=== PATIENT | female | born 1945 | race Caucasian/White ===

== ENCOUNTER → 2016-08-30 | Outpatient (CLI) | payer MEDICARE, BC ==
[~2016-08-30] MED LIST: CALCIUM 600600 M2 PO; CELEBREX 200MG200 MG PO; CLARITIN 1010 MG/TAB PO; FLOVENT DI250 MCG/Ac IH; FOLIC ACID 40400 MCG PO; NORCO 325 MG-7.1 TAB PO; PRIL40 PO; ULTRAM 50MG TAB50 MG PO; VERAMYST27.5 MCG/A NS; VITAMIN C500 MG PO
== END ==
LOC: ZCOL.LAB 14:18
DX: Z01.89 Encounter for other specified special examinations (principal)

== ENCOUNTER → 2016-10-04 | Outpatient (REF) ==
[2016-10-04 11:11] LABS: THYROID STIMULATING HORMONE < 0.015 uIU/mL (0.465-4.680)
== END ==
LOC: ZLAB.WCH 10:22
PROVIDERS: Internal Medicine
DX: Z01.89 Encounter for other specified special examinations (principal)

== ENCOUNTER → 2016-10-20 | Outpatient (REF) ==
[2016-10-20 19:07] LABS: THYROID STIMULATING HORMONE < 0.015 uIU/mL (0.465-4.680)
== END ==
LOC: ZLAB.WCH 18:08
PROVIDERS: Internal Medicine
DX: Z01.89 Encounter for other specified special examinations (principal)

== ENCOUNTER → 2016-11-01 | Outpatient (CLI) | payer MEDICARE, BC | LOC: COL.RAD 07:31 | DX: E04.1 Nontoxic single thyroid nodule (principal) | CPT/HCPCS: A9516 ==

== ENCOUNTER → 2017-05-03 | Outpatient (REF) ==
[2017-05-03 09:35] LABS: THYROID STIMULATING HORMONE 0.994 uIU/mL (0.465-4.680)
== END ==
LOC: ZLAB.WCH 08:34
PROVIDERS: Internal Medicine
DX: Z01.89 Encounter for other specified special examinations (principal)

== ENCOUNTER → 2017-05-26 | Outpatient (CLI) | payer MEDICARE, BC | LOC: COL.RAD 13:00 | DX: E05.20 Thyrotoxicosis with toxic multinodular goiter without thyrotoxic crisis or storm (principal) | CPT/HCPCS: A9517 ==

== ENCOUNTER → 2017-06-30 | Outpatient (REF) ==
[2017-06-30 17:00] LABS: THYROID STIMULATING HORMONE < 0.015 uIU/mL (0.465-4.680)
== END ==
LOC: ZLAB.WCH 16:09
PROVIDERS: Internal Medicine
DX: Z01.89 Encounter for other specified special examinations (principal)

== ENCOUNTER → 2017-08-01 | Outpatient (REF) ==
[2017-08-01 16:01] LABS: THYROID STIMULATING HORMONE 1.53 uIU/mL (0.465-4.680)
== END ==
LOC: ZLAB.WCH 14:26
PROVIDERS: Internal Medicine
DX: Z01.89 Encounter for other specified special examinations (principal)

== ENCOUNTER → 2017-08-30 | Outpatient (REF) ==
[2017-08-30 16:31] LABS: THYROID STIMULATING HORMONE 1.77 uIU/mL (0.465-4.680)
== END ==
LOC: ZLAB.WCH 15:37
PROVIDERS: Internal Medicine
DX: Z01.89 Encounter for other specified special examinations (principal)

== ENCOUNTER → 2017-10-05 | Outpatient (REF) ==
[2017-10-05 18:28] LABS: THYROID STIMULATING HORMONE < 0.015 uIU/mL (0.465-4.680)
== END ==
LOC: ZLAB.WCH 17:46
PROVIDERS: Internal Medicine
DX: Z01.89 Encounter for other specified special examinations (principal)

== ENCOUNTER → 2017-11-03 | Outpatient (REF) ==
[2017-11-03 19:00] LABS: THYROID STIMULATING HORMONE < 0.015 uIU/mL (0.465-4.680)
== END ==
LOC: ZLAB.WCH 18:09
PROVIDERS: Internal Medicine
DX: Z01.89 Encounter for other specified special examinations (principal)

== ENCOUNTER → 2017-12-25 | Outpatient (REF) ==
[2017-12-25 17:11] LABS: THYROID STIMULATING HORMONE < 0.015 uIU/mL (0.465-4.680)
== END ==
LOC: ZLAB.WCH 16:02
PROVIDERS: Internal Medicine Endocrinology, Diabetes & Metabolism
DX: Z01.89 Encounter for other specified special examinations (principal)

== ENCOUNTER → 2018-01-24 | Outpatient (REF) ==
[2018-01-24 16:46] LABS: THYROID STIMULATING HORMONE 0.1 uIU/mL (0.465-4.680)
== END ==
LOC: ZLAB.WCH 16:03
PROVIDERS: Internal Medicine Endocrinology, Diabetes & Metabolism
DX: Z01.89 Encounter for other specified special examinations (principal)

== ENCOUNTER 2021-03-24 13:01 | Outpatient (CLI) | payer MEDICARE, BC ==
[2021-03-24] VITALS (7 sets, daily range): BP systolic 101–142; BP diastolic 52–68; PULSE 80–89; TEMP 97.7
[2021-03-24] MEDS ORDERED: MOBIC15 MG PO (14:11)
[2021-03-24] MEDS ORDERED: FOSAMAX 70MG TA70 MG PO (14:11)
[2021-03-24] MEDS ORDERED: SINGULAIR 110 MG/TAB PO (14:11)
[2021-03-24] MEDS ORDERED: SYSTANE 0.4%-0.1 SOL OP (14:12)
[2021-03-24] MEDS ORDERED: CALCIUM 600 MG1 EAC2 PO (14:12)
== END 2021-03-24 14:55 | disposition home or self-care (01) ==
LOC: EUO 13:01
DX: U07.1 COVID-19 (principal); J98.4 Other disorders of lung
CPT/HCPCS: M0245

== ENCOUNTER 2021-09-08 10:54 | Outpatient (RCR) | payer MEDICARE, BC ==
[~2021-09-08 10:54] MED LIST changes: +CALCIUM 600 MG1 EAC2 PO; +FOSAMAX 70MG TA70 MG PO; +MOBIC15 MG PO; +SINGULAIR 110 MG/TAB PO; +SYSTANE 0.4%-0.1 SOL OP
== END 2021-10-07 | disposition home or self-care (01) ==
LOC: MKS.ESL.PT
DX: M17.12 Unilateral primary osteoarthritis, left knee (principal)

== ENCOUNTER → 2021-10-07 | Outpatient (RCR) | payer MEDICARE, BC | END | disposition still patient (30) | LOC: MKS.ESL.PT | DX: M17.12 Unilateral primary osteoarthritis, left knee (principal) ==

== ENCOUNTER 2021-11-03 10:30 | Outpatient (RCR) | payer MEDICARE, BC | END 2021-11-07 | disposition home or self-care (01) | LOC: MKS.ESL.PT | DX: M17.12 Unilateral primary osteoarthritis, left knee (principal); Z96.652 Presence of left artificial knee joint ==

== ENCOUNTER 2021-11-17 07:51 | Outpatient (RCR) | payer MEDICARE, BC | END 2021-12-08 | disposition home or self-care (01) | LOC: MKS.ESL.PT | DX: M17.12 Unilateral primary osteoarthritis, left knee (principal); Z96.652 Presence of left artificial knee joint ==

== ENCOUNTER → 2023-06-29 | Outpatient (CLI) | payer MEDICARE, BC ==
[~2023-06-29] VITALS: Ht 149.9 cm; Wt 80.0 kg
[~2023-06-29] MED LIST changes: -CALCIUM 600 MG1 EAC2 PO; +CALCIUM 600 PLU1 TAB PO; +REFRESH LIQUIGE15 M1 OP; +SYNTHROID 0.0.025 MG PO
[2023-06-29 12:22] VITALS: BP 180/74; PULSE 82; TEMP 97.5
[2023-06-29 13:10] VITALS: BP 164/85; PULSE 81
== END ==
LOC: COL.RAD 11:48
DX: R22.1 Localized swelling, mass and lump, neck (principal)